=== PATIENT | male | born 1965 | race Caucasian/White ===

== ENCOUNTER → 2017-09-22 | Outpatient (CLI) | payer OTHER | LOC: BMCIMAGING 09:57 | PROVIDERS: ATTEND Family Medicine | DX: M25.462 Effusion, left knee (principal); M11.262 Other chondrocalcinosis, left knee; M23.8X2 Other internal derangements of left knee ==

== ENCOUNTER → 2017-11-12 | Outpatient (CLI) | payer OTHER | LOC: BMCIMAGING 14:03 | PROVIDERS: ATTEND Family Medicine | DX: M11.261 Other chondrocalcinosis, right knee (principal) ==

== ENCOUNTER 2018-05-30 01:42 | Emergency (ER) | payer OTHER ==
[2018-05-30 01:56] LABS: PLATELET COUNT 269 10^3/uL (150-400)
--- NOTE | 2018-05-30 02:06 | EDPHY ---
H & P Stated Complaint: seizure, hypoglycemia Time Seen by Provider: 05/30/18 01:46 HPI/ROS: HPI The patient presents with seizure, witnessed by his , just prior to arrival , with associated low blood glucose, brought in by ambulance. The patient has a history of type 1 diabetes for which he takes insulin. Today he had a normal day, used his NovoLog with breakfast lunch and dinner. He ate dinner at about 7 :30 p.m., a soup which was somewhat manager audio than what he would usually eat. He had 1 alcoholic drink which is usual for him. He administered his NovoLog immediately afterwards. He did not have a snack before bed which he usually does. He took his Lantus 48 units at about 10:20 p.m.. He did some reading and went to bed. After about 1:00 a.m., his awoke to him thrashing in the bed. She has worked as a nurse and recognized that he was having a tonic clonic seizure with some foaming at the mouth, decreased responsiveness, shaking in his arms and legs. She called 911 immediately. She believes this lasted for about 10 min. When paramedics arrived, the patient seizure had subsided on its own. They administered oral glucose load. Initial glucose was low, with food, was as high as 38. They did give D50 and repeat glucose was 48. The patient's symptoms improved after receiving glucose. He currently has right shoulder pain, without any other symptoms. He says he has been feeling well over the last several days. About a week ago he had a URI type illness which has completely resolved. He has had a busy week at work. He denies any chest pain, shortness of breath, fever, chills, weakness. He does not usually check his blood glucose, however treats himself based on his symptoms. His says that several times a year he is hypoglycemic and this last occurred over . He has never had a seizure before. He says that when he does check his blood glucose it ranges from 75- 150. His last hemoglobin A1c was 8. His insulin dosing has not changed over the last several years. REVIEW OF SYSTEMS 10 systems were reviewed and negative with the exception of the elements mentioned in the history of present illness. PMHx: Type 1 diabetes on insulin, bipolar disorder Soc Hx: Lives at home with his , occasional alcohol use PHYSICAL General Appearance: Alert, no distress Eyes: Pupils equal and round no pallor or injection ENT, Mouth: Mucous membranes moist Respiratory: There are no retractions, lungs are clear to auscultation Cardiovascular: Regular rate and rhythm Gastrointestinal: Abdomen is soft and non-tender, no masses, bowel sounds normal Neurological: A&O, moves all extremities Skin: Warm and dry, no rashes Musculoskeletal: Neck is supple non tender, right shoulder is tender to palpation, held in internal rotation with adduction. Extremities: symmetrical, full range of motion Psychiatric: Patient is oriented X 3, there is no agitation Source: Patient, Family, EMS Exam Limitations: Clinical condition - Personal History Tetanus Vaccine Date: <10 years - Medical/Surgical History Hx Asthma: No Hx Chronic Respiratory Disease: No Hx Diabetes: Yes Hx Cardiac Disease: No Hx Renal Disease: No Hx Cirrhosis: No Hx Alcoholism: No Hx HIV/AIDS: No Hx Splenectomy or Spleen Trauma: No Other PMH: IDDM1 - Social History Smoking Status: Never smoked Constitutional: Initial Vital Signs Temperature (C) 36.4 C 05/30/18 01:48 Heart Rate 76 05/30/18 01:48 Respiratory Rate 16 05/30/18 01:48 Blood Pressure 148/81 H 05/30/18 01:48 O2 Sat (%) 95 05/30/18 01:48 O2 Delivery Mode [Post Non-Rebreather Mask Procedure 3rd] O2 Delivery Mode [Post Non-Rebreather Mask Procedure 2nd] O2 Delivery Mode [Procedural Non-Rebreather Mask 4th] O2 Delivery Mode [Procedural Non-Rebreather Mask 3rd] O2 Delivery Mode [Post Non-Rebreather Mask Procedure 1st] O2 Delivery Mode [Procedural Non-Rebreather Mask 2nd] O2 Delivery Mode [Procedural Non-Rebreather Mask 1st] O2 Delivery Mode [.Immediate Non-Rebreather Mask Pre-Procedure] O2 Delivery Mode Room Air O2 (L/minute) [Post Procedure 15 3rd] O2 (L/minute) [Post Procedure 15 2nd] O2 (L/minute) [Procedural 4th] 15 O2 (L/minute) [Procedural 3rd] 15 O2 (L/minute) [Post Procedure 15 1st] O2 (L/minute) [Procedural 2nd] 15 O2 (L/minute) [Procedural 1st] 15 O2 (L/minute) [.Immediate Pre- 15 Procedure] O2 (L/minute) 15 Allergies/Adverse Reactions: No Known Allergies Allergy (Verified 02/21/16 03:29) Home Medications: Medication Instructions Recorded Insulin Glargine [Lantus 100 35 units SC DAILY@18 10/10/10 UNITS/ML] Cholecalciferol Vit D3 [Vitamin D3 1,000 units PO DAILY 02/21/16 (*)] Insulin Lispro [humALOG LISPRO 100 7 - 15 unit SC TIDMEAL 02/21/16 units/ml (*)] buPROPion [Wellbutrin 75mg (*)] 75 mg PO DAILY 02/21/16 Medical Decision Making - Diagnostics Imaging Results: X-ray right shoulder three views shows possible posterior shoulder dislocation with no fracture, interpreted by me, radiology interpretation is pending. CT scan of right shoulder without contrast demonstrates no dislocation, degenerative joint disease, interpreted by direct Radiology. Imaging: Discussed imaging studies w/ call center consultant Radiologist, I viewed and interpreted images myself Procedures: PROCEDURAL SEDATION Procedure: Procedural sedation. Indication: Right shoulder dislocations The patient is an appropriate candidate to tolerate procedural sedation. The patient's vital signs and mental status are appropriate. The risks, benefits and alternatives of the sedation were discussed with the patient. The patient is ASA classification 3. The patient's Mallampati airway score was 1 and the patient did meet the 3-3-2 airway measurements. A time out was completed. The patient was sedated with propofol. The patient was monitored with continuous pulse oximetry, wallpaper printer helper and end tidal CO2. There were no complications and no significant hypoxemia. I performed both the sedation and the procedure. The total time I spent at the bedside during the procedural sedation was 10 minutes. The patient was examined after the procedural sedation and has returned to their pre-sedation baseline with normal vital signs and a normal examination. REDUCTION Procedure: Dislocation reduction. Indication: Dislocation The shoulder was reduced in the usual fashion without complications. Post reduction the patient's neurovascular exam is normal. Post reduction x-ray demonstrates reduction of the joint to the anatomic position. The procedure was performed by myself. Differential Diagnosis: 52-year-old male with type 1 diabetes on insulin presents with seizure in the setting of hypoglycemia. Blood glucose by paramedics initially registered as low, then 20 after glucose load. Currently in the emergency department he has no complaints except for right shoulder pain which he developed after the seizure. He has been taking his usual insulin with no extra doses or increased dosing. He did have a manager audio dinner than usual. He does not have any systemic signs of illness. In the emergency department, blood glucose was checked on arrival and was 172. We will check this every 1 hr. Other labs were unremarkable. X-rays of right shoulder demonstrated possible posterior dislocation. Patient was unable to externally rotate or abduct his shoulder whatsoever. Clinically he appeared dislocated. Procedural sedation was performed. It was unclear if the joint was reduced, the CT scan was obtained and this did not demonstrate any dislocation though did demonstrate DJD. Patient felt much better after returning from CT scan. I suspect he may have been dislocated and was reduced given he clinically felt much better. Because of this patient was in the emergency department for a little bit over 4 hr. Repeat glucose levels were normal. I offered him admission to the hospital , however he requests to go home and I feel this is reasonable. He now recalls that he forgot to eat lunch yesterday as well. We have decided to decrease his Lantus dose by 20% for the next 1 week until he can be seen by his primary care doctor. He will follow up with his primary orthopedist and I have sent him home with a shoulder sling to help with pain. - Data Points Laboratory Results: Laboratory Results 05/30/18 01:51 05/30/18 01:51 Medications Given: Discontinued Medications Diazepam (Valium) 5 mg IVP EDNOW ONE Stop: 05/30/18 03:31 Last Admin: 05/30/18 03:30 Dose: 5 mg Hydromorphone HCl (Dilaudid) 1 mg IVP EDNOW ONE Stop: 05/30/18 03:01 Last Admin: 05/30/18 03:00 Dose: 1 mg Hydromorphone HCl (Dilaudid) 1 mg IVP EDNOW ONE Stop: 05/30/18 04:13 Last Admin: 05/30/18 04:13 Dose: 1 mg Sodium Chloride (Ns) 1,000 mls @ 0 mls/hr IV ONCE ONE; Wide Open PRN Reason: Protocol Stop: 05/30/18 04:13 Last Admin: 05/30/18 03:00 Dose: 1,000 mls Ondansetron HCl (Zofran) 4 mg IVP EDNOW ONE Stop: 05/30/18 04:13 Last Admin: 05/30/18 04:13 Dose: 4 mg Propofol (Diprivan) 180 mg IVP EDNOW ONE Stop: 05/30/18 03:16 Last Admin: 05/30/18 03:15 Dose: 180 mg Propofol (Diprivan) 100 mg IVP EDNOW ONE Stop: 05/30/18 03:51 Last Admin: 05/30/18 03:50 Dose: 100 mg Point of Care Test Results: Chemistry 05/30/18 05/30/18 05/30/18 04:51 04:00 02:50 POC Glucose 143 mg/dL H mg/dL 114 mg/dL H mg/dL 154 mg/dL H mg/dL (70-100) (70-100) (70-100) 05/30/18 01:50 POC Glucose 172 mg/dL H mg/dL (70-100) Departure - Departure Disposition: Home, Routine, Self-Care Clinical Impression: Seizure, Hypoglycemia due to type 1 diabetes mellitus, Posterior dislocation of right shoulder joint, Right shoulder pain Condition: Good Instructions: Shoulder Dislocation (ED), What to Do if Your Blood Sugar is Low (ED) Additional Instructions: Please decrease your insulin dose to 40 units once a day. Please make sure to eat regularly. Please follow-up with your primary care doctor in 1-2 days. Please contact her orthopedist for a follow-up as well. Referrals: Moy Timmons MD [Primary Care Provider] - As per Instructions Mika Chi MD [Medical Doctor] - As per Instructions
[2018-05-30] MEDS ORDERED: HYDROmorphONE/DILAUDID 2 MG/ML INJ IVP ONE ×3 (03:00→04:12)
[2018-05-30] MEDS ORDERED: PROPOFOL 200 MG/20 ML VIAL ONE (03:01)
[2018-05-30] MEDS ORDERED: HYDROmorphONE/DILAUDID 2 MG/ML INJ ONE (03:01)
[2018-05-30] MEDS ORDERED: PROPOFOL 200 MG/20 ML VIAL IVP ONE ×2 (03:15→03:50)
[2018-05-30] MEDS ORDERED: DIAZEPAM 5 MG/ML 1 ML SYR ONE (03:28)
[2018-05-30] MEDS ORDERED: DIAZEPAM 5 MG/ML 1 ML SYR IVP ONE (03:30)
[2018-05-30] MEDS ORDERED: ONDANSETRON 4 MG/2 ML VIAL ONE (04:11)
[2018-05-30] MEDS ORDERED: NS 1,000 ML IV ONE (04:12)
[2018-05-30] MEDS ORDERED: ONDANSETRON 4 MG/2 ML VIAL IVP ONE (04:12)
[2018-05-30] MEDS ORDERED: LORazepam 2 MG/ML INJ IVP PRN (04:47)
[2018-05-30] MEDS ORDERED: ACETAMINOPHEN 325 MG TAB PO PRN (04:47)
[2018-05-30] MEDS ORDERED: ONDANSETRON 4 MG/2 ML VIAL IVP PRN (04:47)
[2018-05-30] MEDS ORDERED: ONDANSETRON DISINTEGRATING 4 MG TAB PO PRN (04:47)
[2018-05-30] MEDS ORDERED: HYDROCODONE/APAP 5/325 TAB PO PRN (04:47)
[2018-05-30] MEDS ORDERED: D50W 25 GM/50 ML SYR IVP PRN (04:50)
[2018-05-30] MEDS ORDERED: NS 1,000 ML IV SCH (05:00)
[2018-05-30 05:34] VITALS: BP 137/76
--- NOTE | 2018-05-30 06:02 | CPEKG ---
Test Reason : OPEN Blood Pressure : / mmHG Vent. Rate : 065 BPM Atrial Rate : 066 BPM P-R Int : 190 ms QRS Dur : 092 ms QT Int : 403 ms P-R-T Axes : 009 051 043 degrees QTc Int : [address] elev, probable normal early repol pattern Confirmed by Amara Ng ([id number]) on 05/30/2018 6:01:28 AM Referred By: Amara Ng Confirmed By:Amara Ng
[2018-05-30] MEDS ORDERED: INSULIN LISPRO 100 UNIT/ML SC SCH (08:00)
== END 2018-05-30 05:33 | disposition home or self-care (01) ==
LOC: EDUNIT# → UNDOADMIN 04:11
PROC: 0RSJXZZ Reposition Right Shoulder Joint, External Approach (ICD-10-PCS; principal; 2018-05-30)
DX: R56.9 Unspecified convulsions (principal); E10.649 Type 1 diabetes mellitus with hypoglycemia without coma; S43.021A Posterior subluxation of right humerus, initial encounter; Z79.4 Long term (current) use of insulin; E86.9 Volume depletion, unspecified
CPT/HCPCS: 96374; G0480; J1170; J2405; J2704; J3360

== ENCOUNTER 2018-09-21 14:51 | Emergency (ER) | payer OTHER ==
[2018-09-21] MEDS ORDERED: NS 500 ML IV ONE (15:05)
--- NOTE | 2018-09-21 15:05 | EDPHY ---
H & P Stated Complaint: cp htn dizzy Time Seen by Provider: 09/21/18 15:02 - Personal History Current Tetanus Diphtheria and Acellular Pertussis (TDAP): Yes Tetanus Vaccine Date: <10 years - Medical/Surgical History Hx Asthma: No Hx Chronic Respiratory Disease: No Hx Diabetes: Yes Hx Cardiac Disease: No Hx Renal Disease: No Hx Cirrhosis: No Hx Alcoholism: No Hx HIV/AIDS: No Hx Splenectomy or Spleen Trauma: No Other PMH: IDDM1/ htn - Social History Smoking Status: Never smoked Constitutional: Initial Vital Signs Temperature (C) 36.9 C 09/21/18 14:52 Heart Rate 79 09/21/18 14:52 Respiratory Rate 18 09/21/18 14:52 Blood Pressure 150/82 H 09/21/18 14:52 O2 Sat (%) 96 09/21/18 14:52 O2 Delivery Mode Room Air Allergies/Adverse Reactions: No Known Allergies Allergy (Verified 09/21/18 14:52) Home Medications: Medication Instructions Recorded Insulin Glargine [Lantus 100 35 units SC DAILY@18 10/10/09 UNITS/ML] Cholecalciferol Vit D3 [Vitamin D3 1,000 units PO DAILY 02/21/16 (*)] Insulin Lispro [humALOG LISPRO 100 7 - 15 unit SC TIDMEAL 02/21/16 units/ml (*)] buPROPion [Wellbutrin 75mg (*)] 75 mg PO DAILY 02/21/16 Lisinopril 09/21/18 Medical Decision Making - Diagnostics Imaging Results: Imaging Impressions Chest X-Ray 09/21/18 15:05 Impression: There is a hazy opacity at the medial right cardiac margin, likely atelectasis or scarring. Imaging: Discussed imaging studies w/ broaching machine repairer Radiologist, I viewed and interpreted images myself ED Course/Re-evaluation: CHIEF COMPLAINT: Chest pain and dizzy HISTORY OF PRESENT ILLNESS: The patient is a 52 y/o male with a history of PVC's, type 1 diabetes, and hypertension complaining of intermittent sharp chest pain and feeling dizzy. The patient reports that he hasn't felt since a hypoglycemic syncopal event on 06/06/18, 3 months ago. He recently saw his PCP and manager marketing communications. He wore a Holter monitor which revealed 2.9% PVC's. He is trying to get a follow up appointment with his manager marketing communications for an echo and stress test. Today at 09:00, 6 hours ago, he developed sharp chest pain and thought he was going to pass out. This pain has been intermittent since. He denies any recent travel or taking anticoagulants. No fever, headache, body aches, lightheadedness, heart palpitations, shortness of breath, cough, abdominal pain, urinary or bowel complaints, numbness, paresthesias. REVIEW OF SYSTEMS: A 10 point review of systems was performed and is negative with the exception of the elements mentioned in the history of present illness. PHYSICAL EXAM: HR, BP, O2 Sat, RR. Temp noted General Appearance: Alert, well hydrated, appropriate, and non-toxic appearing. Head: Atraumatic without scalp tenderness or obvious injury Eyes: Pupils equal, round, reactive to light and accommodation, EOMI, no trauma , no injection. Ears: Clear bilaterally, no perforation, normal landmarks Nose: Atraumatic, no rhinorrhea, clear. Throat: There is no erythema or exudates, no lesions, normal tonsils, mucus membranes moist. Neck: Supple, 2+ carotid upstroke, nontender, no lymphadenopathy. Respiratory: No retractions, no distress, no wheezes, and no accessory muscle use. Lungs are clear to auscultation bilaterally. Cardiovascular: Intermittent PVC's on the monitor, no murmurs, rubs, or gallops. Bilateral carotid, radial, dorsalis pedis, and posterior tibial pulses intact. Good capillary refill all extremities. Gastrointestinal: Abdomen is soft, nontender, non-distended, no masses, no rebound, no guarding, no peritoneal signs. Musculoskeletal: Normal active ROM of all extremities, atraumatic. Neurological: Alert, appropriate, and interactive. The patient has normal DTRs and non-focal cranial nerves, motor, sensory, and cerebellar exam. Skin: No rashes, good turgor, no nodules on palpation. Past medical history: Diabetes, hypertension Past surgical history: Denies Family history: Denies Social history: Lives in [place], , employed DIAGNOSTICS/PROCEDURES/CRITICAL CARE TIME: EKG: The 12 lead EKG was interpreted by myself as sinus rhythm with a rate of 72. Patient now has inverted T-waves in V2 which is new compared to EKG on 05/30. See hard copy and/or "tracemaster" electronic copy for interpretation. Chest x-ray: There is a hazy opacity at the medial right cardiac margin, likely atelectasis or scarring. Echo: No wall motion abnormalities Coronary CTA: Negative DIFFERENTIAL DIAGNOSIS: The differential diagnosis for the patient's chest pain included but was not limited to myocardial ischemia, pulmonary embolus, chest wall pain, pleural inflammation, and pulmonary infectious causes. MEDICAL DECISION MAKING: The patient is a 52 y/o male with a history of PVC's, type 1 diabetes, and hypertension presenting intermittent sharp chest pain and feeling dizzy. He wore a Holter monitor which revealed 2.9% PVC's. He is trying to get a follow up appointment with his manager marketing communications for an echo and stress test. Today at 09:00 , 6 hours ago, he developed sharp chest pain and thought he was going to pass out. On exam he has intermittent PVC's on the monitor. Labs, EKG, Coronary CTA, and echo ordered; 500mL IV NS 1509: I interpreted patient's EKG as sinus rhythm with a rate of 72. Patient now has inverted T-waves in V2 which is new compared to EKG on 05/30/18 1523: Patient's heart rate will need to be slowed to 60, 5mg IV Lopressor administered. 1547: I spoke with the upholstery tech who reports that there are no wall motion abnormalities. 1610: Patient's d-dimer and troponin are negative. 1726: I spoke with Dr. Kay, radiologist, regarding this patient. There are not acute findings on his CTA. 1745: Reassessed patient and discussed laboratory and imaging findings. I reviewed the share decision making instrument with the patient, including risk of MACE, and the patient (and family) that are in agreement with the chosen disposition. Return precautions provided; patient is comfortable with this plan. - Data Points Laboratory Results: Laboratory Results 09/21/18 15:17 09/21/18 Unknown 09/21/18 09/21/18 09/21/18 Unknown 15:24 15:17 WBC RBC Hgb Hct MCV MCH MCHC RDW Plt Count MPV Neut % (Auto) Lymph % (Auto) [place] % (Auto) Eos % (Auto) Baso % (Auto) Nucleat RBC Rel Count Absolute Neuts (auto) Absolute Lymphs (auto) Absolute Monos (auto) Absolute Eos (auto) Absolute Basos (auto) Absolute Nucleated RBC Immature Gran % Immature Gran # D-Dimer < 0.27 ug/mLFEU ug/mLFEU (0.00-0.50) Sodium 134 mEq/L L mEq/L (135-145) Potassium 4.2 mEq/L mEq/L (3.5-5.2) Chloride 102 mEq/L mEq/L (97-110) Carbon Dioxide 21 mEq/l L mEq/l (22-31) Anion Gap 11 mEq/L mEq/L (6-14) BUN 20 mg/dL mg/dL (7-23) Creatinine 0.9 mg/dL mg/dL (0.7-1.3) Estimated GFR > 60 Glucose 224 mg/dL H mg/dL (70-100) Calcium 9.3 mg/dL mg/dL (8.5-10.4) Magnesium 1.7 mg/dL mg/dL (1.6-2.3) Total Bilirubin 0.5 mg/dL mg/dL (0.1-1.4) Conjugated Bilirubin 0.1 mg/dL mg/dL (0.0-0.5) Unconjugated Bilirubin 0.4 mg/dL mg/dL (0.0-1.1) AST 30 IU/L IU/L (17-59) ALT 59 IU/L IU/L (21-72) Alkaline Phosphatase 113 IU/L IU/L (38-126) POC Troponin I 0.00 ng/mL ng/mL (0.00-0.08) NT-Pro-B Natriuret Pep 64 pg/mL pg/mL (0-125) Total Protein 6.6 g/dL g/dL (6.3-8.2) Albumin 4.3 g/dL g/dL (3.5-5.0) Lipase 65 IU/L IU/L (23-300) 09/21/18 09/21/18 15:17 15:13 WBC 6.58 10^3/uL 10^3/uL (3.80-9.50) RBC 5.08 10^6/uL 10^6/uL (4.40-6.38) Hgb 16.4 g/dL g/dL (13.7-17.5) Hct 46.7 % % (40.0-51.0) MCV 91.9 fL fL (81.5-99.8) MCH 32.3 pg pg (27.9-34.1) MCHC 35.1 g/dL g/dL (32.4-36.7) RDW 12.0 % % (11.5-15.2) Plt Count 284 10^3/uL 10^3/uL (150-400) MPV 10.2 fL fL (8.7-11.7) Neut % (Auto) 63.6 % % (39.3-74.2) Lymph % (Auto) 24.6 % % (15.0-45.0) [place] % (Auto) 9.3 % % (4.5-13.0) Eos % (Auto) 1.8 % % (0.6-7.6) Baso % (Auto) 0.5 % % (0.3-1.7) Nucleat RBC Rel Count 0.0 % % (0.0-0.2) Absolute Neuts (auto) 4.19 10^3/uL 10^3/uL (1.70-6.50) Absolute Lymphs (auto) 1.62 10^3/uL 10^3/uL (1.00-3.00) Absolute Monos (auto) 0.61 10^3/uL 10^3/uL (0.30-0.80) Absolute Eos (auto) 0.12 10^3/uL 10^3/uL (0.03-0.40) Absolute Basos (auto) 0.03 10^3/uL 10^3/uL (0.02-0.10) Absolute Nucleated RBC 0.00 10^3/uL 10^3/uL (0-0.01) Immature Gran % 0.2 % % (0.0-1.1) Immature Gran # 0.01 10^3/uL 10^3/uL (0.00-0.10) D-Dimer Sodium Potassium Chloride Carbon Dioxide Anion Gap BUN Creatinine Estimated GFR Glucose Calcium Magnesium Total Bilirubin Conjugated Bilirubin Unconjugated Bilirubin AST ALT Alkaline Phosphatase POC Troponin I TNP NT-Pro-B Natriuret Pep Total Protein Albumin Lipase Medications Given: Discontinued Medications Sodium Chloride (Ns) 500 mls @ 1,000 mls/hr IV EDNOW ONE PRN Reason: Protocol Stop: 09/21/18 15:34 Last Admin: 09/21/18 15:27 Dose: 500 mls Metoprolol Tartrate (Lopressor Injection) 5 mg IVP Q5M [facility] Stop: 09/21/18 15:41 Last Admin: 09/21/18 16:05 Dose: 5 mg Point of Care Test Results: Chemistry 09/21/18 09/21/18 15:24 15:13 POC Troponin I 0.00 ng/mL ng/mL TNP (0.00-0.08) Departure - Departure Disposition: Home, Routine, Self-Care Clinical Impression: Dizzy, PVC (premature ventricular contraction) Chest pain Qualifiers: Chest pain type: other chest pain Qualified Code(s): R07.89 - Other chest pain Condition: Good Instructions: Chest Pain (ED), Dizziness (ED), Premature Ventricular Contractions (ED) Additional Instructions: 1. Follow-up with your primary doctor within 72 hours. 2. Return to the Emergency Department for fever, chest pain, shortness of breath , increasing pain or other worsening of condition. 3. Follow up with a manager marketing communications for further testing, as soon as possible, within one week. 4. As we discussed, it is impossible to fully rule out heart disease as the cause of your chest pain in the emergency department. We would be happy to reevaluate you and observe you in the hospital at any time. Referrals: Clary Bailey MD [Medical Doctor] - As per Instructions Report Scribed for: Red Navarrete Report Scribed by: Dipti Lopez Date of Report: 09/21/18 Time of Report: 15:02
[2018-09-21] MEDS: METOPROLOL TARTRATE 5 MG/5 ML INJ IVP SCH ×3 (15:27→16:05)
[2018-09-21 15:28] LABS: PLATELET COUNT 284 10^3/uL (150-400)
[2018-09-21] MEDS ORDERED: IOPAMIDOL (ISOVUE-370) 150 ML BTL IV ONE (15:51)
[2018-09-21 18:08] VITALS: BP 142/81
--- NOTE | 2018-09-21 20:34 | CPEKG ---
Test Reason : OPEN Blood Pressure : / mmHG Vent. Rate : 072 BPM Atrial Rate : 072 BPM P-R Int : 182 ms QRS Dur : 088 ms QT Int : 389 ms P-R-T Axes : 004 065 060 degrees QTc Int : [address] elev, probable normal early repol pattern Confirmed by Red Navarrete ([id number]) on 09/21/2018 8:34:06 PM Referred By: Red Navarrete Confirmed By:Red Navarrete
== END 2018-09-21 18:07 | disposition home or self-care (01) ==
DX: I49.3 Ventricular premature depolarization (principal); R42 Dizziness and giddiness; R07.89 Other chest pain; I10 Essential (primary) hypertension; E11.9 Type 2 diabetes mellitus without complications; E86.9 Volume depletion, unspecified
CPT/HCPCS: 84484-ER; 96374; Q9967